=== PATIENT | female | born 1970 | race Caucasian/White ===

== ENCOUNTER 2024-07-19 07:52 | Outpatient (CLI) | payer BC, SELFPAY | END 2024-07-19 07:53 | disposition home or self-care (01) | LOC: WOUND 07:55 | PROVIDERS: PCP Physician Assistant; Visit Provider Nurse Practitioner Family | DX: L02.214 Cutaneous abscess of groin (principal); I10 Essential (primary) hypertension; E11.8 Type 2 diabetes mellitus with unspecified complications; Z79.4 Long term (current) use of insulin; Z79.85 Long-term (current) use of injectable non-insulin antidiabetic drugs | CPT/HCPCS: 11043; 11046; 97606; G0463 ==

== ENCOUNTER 2024-07-23 09:46 | Outpatient (CLI) | payer BC, SELFPAY | END 2024-07-23 09:47 | disposition home or self-care (01) | LOC: WOUND 09:47 | PROVIDERS: PCP Physician Assistant; Visit Provider Nurse Practitioner Family | DX: L02.416 Cutaneous abscess of left lower limb (principal); I10 Essential (primary) hypertension; E11.8 Type 2 diabetes mellitus with unspecified complications; Z79.4 Long term (current) use of insulin; Z79.85 Long-term (current) use of injectable non-insulin antidiabetic drugs | CPT/HCPCS: 97606 ==

== ENCOUNTER 2024-07-25 12:34 | Outpatient (CLI) | payer BC, SELFPAY | END 2024-07-25 12:35 | disposition home or self-care (01) | LOC: WOUND 12:34 | PROVIDERS: PCP Physician Assistant; Visit Provider Nurse Practitioner Family | DX: L02.416 Cutaneous abscess of left lower limb (principal); E11.8 Type 2 diabetes mellitus with unspecified complications; I10 Essential (primary) hypertension; Z79.4 Long term (current) use of insulin; Z79.85 Long-term (current) use of injectable non-insulin antidiabetic drugs | CPT/HCPCS: 97606 ==

== ENCOUNTER 2024-07-27 08:47 | Outpatient (CLI) | payer BC, SELFPAY | END 2024-07-27 08:48 | disposition home or self-care (01) | LOC: WOUND 08:47 | PROVIDERS: PCP Physician Assistant; Visit Provider Nurse Practitioner Family | DX: M72.6 Necrotizing fasciitis (principal); L02.416 Cutaneous abscess of left lower limb; I10 Essential (primary) hypertension; E11.8 Type 2 diabetes mellitus with unspecified complications; Z79.84 Long term (current) use of oral hypoglycemic drugs; Z79.85 Long-term (current) use of injectable non-insulin antidiabetic drugs | CPT/HCPCS: 11042; 11045; 97606 ==

== ENCOUNTER 2024-07-30 09:09 | Outpatient (CLI) | payer BC, SELFPAY | END 2024-07-30 09:10 | disposition home or self-care (01) | LOC: WOUND 09:09 | PROVIDERS: PCP Physician Assistant; Visit Provider Nurse Practitioner Family | DX: L02.416 Cutaneous abscess of left lower limb (principal); I10 Essential (primary) hypertension; Z79.4 Long term (current) use of insulin | CPT/HCPCS: 97606 ==

== ENCOUNTER 2024-08-02 14:50 | Outpatient (CLI) | payer BC, SELFPAY | END 2024-08-02 14:51 | disposition home or self-care (01) | LOC: WOUND 14:50 | PROVIDERS: PCP Physician Assistant; Visit Provider Nurse Practitioner Family | DX: M72.6 Necrotizing fasciitis (principal); L02.416 Cutaneous abscess of left lower limb; E11.8 Type 2 diabetes mellitus with unspecified complications; I10 Essential (primary) hypertension; Z79.4 Long term (current) use of insulin; Z79.84 Long term (current) use of oral hypoglycemic drugs | CPT/HCPCS: 11042; 11045; 97606; G0463 ==

== ENCOUNTER 2024-08-06 12:47 | Outpatient (CLI) | payer BC, SELFPAY | END 2024-08-06 12:48 | disposition home or self-care (01) | LOC: WOUND 12:47 | PROVIDERS: PCP Physician Assistant; Visit Provider Nurse Practitioner Family | DX: M72.6 Necrotizing fasciitis (principal); L02.416 Cutaneous abscess of left lower limb; E11.8 Type 2 diabetes mellitus with unspecified complications; I10 Essential (primary) hypertension; Z79.4 Long term (current) use of insulin | CPT/HCPCS: 82962; 97606; G0277 ==

== ENCOUNTER 2024-08-09 07:50 | Outpatient (CLI) | payer BC, SELFPAY | END 2024-08-09 07:51 | disposition home or self-care (01) | PROVIDERS: PCP Physician Assistant; Visit Provider Nurse Practitioner Family | DX: M72.6 Necrotizing fasciitis (principal); L02.416 Cutaneous abscess of left lower limb; E11.8 Type 2 diabetes mellitus with unspecified complications; Z79.4 Long term (current) use of insulin | CPT/HCPCS: 11042; 11045; 82962; 97606; G0277 ==

== ENCOUNTER 2024-08-13 08:52 | Outpatient (CLI) | payer BC, SELFPAY | END 2024-08-13 08:53 | disposition home or self-care (01) | PROVIDERS: PCP Physician Assistant; Visit Provider Nurse Practitioner Family | DX: M72.6 Necrotizing fasciitis (principal); L02.416 Cutaneous abscess of left lower limb; I10 Essential (primary) hypertension; E11.8 Type 2 diabetes mellitus with unspecified complications; Z79.4 Long term (current) use of insulin | CPT/HCPCS: 82962; 97606; G0277 ==

== ENCOUNTER 2024-08-15 08:51 | Outpatient (CLI) | payer BC, SELFPAY | END 2024-08-15 08:52 | disposition home or self-care (01) | LOC: WOUND 08:52 | PROVIDERS: PCP Physician Assistant; Visit Provider Nurse Practitioner Family | DX: M72.6 Necrotizing fasciitis (principal); L02.416 Cutaneous abscess of left lower limb; E11.8 Type 2 diabetes mellitus with unspecified complications | CPT/HCPCS: 82962; 97606; G0277 ==

== ENCOUNTER 2024-08-17 08:49 | Outpatient (CLI) | payer BC, SELFPAY | END 2024-08-17 08:50 | disposition home or self-care (01) | LOC: WOUND 08:49 | PROVIDERS: PCP Physician Assistant; Visit Provider Nurse Practitioner Family | DX: M72.6 Necrotizing fasciitis (principal); L02.416 Cutaneous abscess of left lower limb; E11.8 Type 2 diabetes mellitus with unspecified complications; Z79.85 Long-term (current) use of injectable non-insulin antidiabetic drugs | CPT/HCPCS: 11042; 11045; 82962; 97606; G0277 ==

== ENCOUNTER 2024-08-20 08:50 | Outpatient (CLI) | payer BC, SELFPAY | END 2024-08-20 08:51 | disposition home or self-care (01) | LOC: WOUND 08:50 | PROVIDERS: PCP Physician Assistant; Visit Provider Nurse Practitioner Family | DX: M72.6 Necrotizing fasciitis (principal); L02.416 Cutaneous abscess of left lower limb; E11.8 Type 2 diabetes mellitus with unspecified complications; Z79.85 Long-term (current) use of injectable non-insulin antidiabetic drugs | CPT/HCPCS: 82962; 97606; G0277 ==

== ENCOUNTER 2024-08-22 08:50 | Outpatient (CLI) | payer BC, SELFPAY | END 2024-08-22 08:51 | disposition home or self-care (01) | LOC: WOUND 08:51 | PROVIDERS: PCP Physician Assistant; Visit Provider Nurse Practitioner Family | DX: M72.6 Necrotizing fasciitis (principal); L02.416 Cutaneous abscess of left lower limb; I10 Essential (primary) hypertension; E11.8 Type 2 diabetes mellitus with unspecified complications; Z79.85 Long-term (current) use of injectable non-insulin antidiabetic drugs | CPT/HCPCS: 82962; 97606; G0277 ==

== ENCOUNTER 2024-08-23 09:00 | Outpatient (RCR) | payer BC, SELFPAY | END 2024-09-07 23:59 | disposition home or self-care (01) | LOC: WOUND 09:00 | PROVIDERS: PCP Physician Assistant; Visit Provider Nurse Practitioner Family | DX: M72.6 Necrotizing fasciitis (principal); L02.416 Cutaneous abscess of left lower limb; E11.8 Type 2 diabetes mellitus with unspecified complications; Z79.85 Long-term (current) use of injectable non-insulin antidiabetic drugs | CPT/HCPCS: 82962; G0277 ==

== ENCOUNTER 2024-08-24 08:48 | Outpatient (CLI) | payer BC, SELFPAY | END 2024-08-24 08:49 | disposition home or self-care (01) | LOC: WOUND 08:48 | PROVIDERS: PCP Physician Assistant; Visit Provider Nurse Practitioner Family | DX: M72.6 Necrotizing fasciitis (principal); L02.416 Cutaneous abscess of left lower limb; E11.8 Type 2 diabetes mellitus with unspecified complications; Z79.85 Long-term (current) use of injectable non-insulin antidiabetic drugs | CPT/HCPCS: 11042; 11045; 82962; 97606; G0277 ==

== ENCOUNTER 2024-08-27 08:00 | Outpatient (CLI) | payer BC, SELFPAY | END 2024-08-27 08:01 | disposition home or self-care (01) | LOC: WOUND 08-30 15:23 | PROVIDERS: PCP Physician Assistant; Visit Provider Nurse Practitioner Family | DX: M72.6 Necrotizing fasciitis (principal); L02.416 Cutaneous abscess of left lower limb; E11.8 Type 2 diabetes mellitus with unspecified complications; Z79.85 Long-term (current) use of injectable non-insulin antidiabetic drugs | CPT/HCPCS: 97606 ==

== ENCOUNTER 2024-08-29 07:55 | Outpatient (CLI) | payer BC, SELFPAY | END 2024-08-29 07:56 | disposition home or self-care (01) | PROVIDERS: PCP Physician Assistant; Visit Provider Nurse Practitioner Family | DX: M72.6 Necrotizing fasciitis (principal); L02.416 Cutaneous abscess of left lower limb; E11.8 Type 2 diabetes mellitus with unspecified complications; Z79.85 Long-term (current) use of injectable non-insulin antidiabetic drugs | CPT/HCPCS: 97606 ==

== ENCOUNTER 2024-08-31 12:54 | Outpatient (CLI) | payer BC, SELFPAY | END 2024-08-31 12:55 | disposition home or self-care (01) | LOC: WOUND 12:55 | PROVIDERS: PCP Physician Assistant; Visit Provider Nurse Practitioner Family | DX: M72.6 Necrotizing fasciitis (principal); L02.416 Cutaneous abscess of left lower limb; E11.8 Type 2 diabetes mellitus with unspecified complications; Z79.85 Long-term (current) use of injectable non-insulin antidiabetic drugs | CPT/HCPCS: 11042; 11045 ==

== ENCOUNTER 2024-09-07 12:55 | Outpatient (CLI) | payer BC, SELFPAY | END 2024-09-07 12:56 | disposition home or self-care (01) | LOC: WOUND 12:55 | PROVIDERS: PCP Physician Assistant; Visit Provider Physician Assistant | DX: M72.6 Necrotizing fasciitis (principal); L02.416 Cutaneous abscess of left lower limb; E11.8 Type 2 diabetes mellitus with unspecified complications; Z79.85 Long-term (current) use of injectable non-insulin antidiabetic drugs | CPT/HCPCS: 97597; 97598 ==

== ENCOUNTER 2024-09-14 12:52 | Outpatient (CLI) | payer BC, SELFPAY | END 2024-09-14 12:53 | disposition home or self-care (01) | LOC: WOUND 12:52 | PROVIDERS: PCP Physician Assistant; Visit Provider Physician Assistant | DX: L02.416 Cutaneous abscess of left lower limb (principal); E11.8 Type 2 diabetes mellitus with unspecified complications; Z79.85 Long-term (current) use of injectable non-insulin antidiabetic drugs | CPT/HCPCS: 97597 ==

== ENCOUNTER 2024-09-21 12:52 | Outpatient (CLI) | payer BC, SELFPAY | END 2024-09-21 12:53 | disposition home or self-care (01) | LOC: WOUND 12:52 | PROVIDERS: PCP Physician Assistant; Visit Provider Nurse Practitioner Family | DX: M72.6 Necrotizing fasciitis (principal); L02.416 Cutaneous abscess of left lower limb; E11.8 Type 2 diabetes mellitus with unspecified complications; Z79.85 Long-term (current) use of injectable non-insulin antidiabetic drugs | CPT/HCPCS: 11042 ==

== ENCOUNTER 2024-09-28 12:55 | Outpatient (CLI) | payer BC, SELFPAY | END 2024-09-28 12:56 | disposition home or self-care (01) | PROVIDERS: PCP Physician Assistant; Visit Provider Nurse Practitioner Family | DX: M72.6 Necrotizing fasciitis (principal); L02.416 Cutaneous abscess of left lower limb; E11.8 Type 2 diabetes mellitus with unspecified complications; Z79.85 Long-term (current) use of injectable non-insulin antidiabetic drugs | CPT/HCPCS: 11042 ==

== ENCOUNTER 2024-10-05 12:58 | Outpatient (CLI) | payer BC, SELFPAY | END 2024-10-05 12:59 | disposition home or self-care (01) | LOC: WOUND 12:58 | PROVIDERS: PCP Physician Assistant; Visit Provider Physician Assistant | DX: M72.6 Necrotizing fasciitis (principal); E11.8 Type 2 diabetes mellitus with unspecified complications; L02.416 Cutaneous abscess of left lower limb; Z79.85 Long-term (current) use of injectable non-insulin antidiabetic drugs | CPT/HCPCS: 97597 ==

== ENCOUNTER 2024-10-12 12:56 | Outpatient (CLI) | payer BC, SELFPAY | END 2024-10-12 12:57 | disposition home or self-care (01) | PROVIDERS: PCP Physician Assistant; Visit Provider Nurse Practitioner Family | DX: M72.6 Necrotizing fasciitis (principal); L02.416 Cutaneous abscess of left lower limb; E11.8 Type 2 diabetes mellitus with unspecified complications; Z79.85 Long-term (current) use of injectable non-insulin antidiabetic drugs | CPT/HCPCS: 11042 ==

== ENCOUNTER 2024-10-19 12:57 | Outpatient (CLI) | payer BC, SELFPAY | END 2024-10-19 12:58 | disposition home or self-care (01) | LOC: WOUND 12:57 | PROVIDERS: PCP Physician Assistant; Visit Provider Nurse Practitioner Family | DX: M72.6 Necrotizing fasciitis (principal); L02.416 Cutaneous abscess of left lower limb; E11.8 Type 2 diabetes mellitus with unspecified complications; I10 Essential (primary) hypertension | CPT/HCPCS: 11042 ==

== ENCOUNTER 2024-10-26 12:57 | Outpatient (CLI) | payer BC, SELFPAY | END 2024-10-26 12:58 | disposition home or self-care (01) | LOC: WOUND 12:57 | PROVIDERS: PCP Physician Assistant; Visit Provider Nurse Practitioner Family | DX: M72.6 Necrotizing fasciitis (principal); L02.416 Cutaneous abscess of left lower limb; E11.8 Type 2 diabetes mellitus with unspecified complications; Z79.84 Long term (current) use of oral hypoglycemic drugs; Z79.85 Long-term (current) use of injectable non-insulin antidiabetic drugs | CPT/HCPCS: 11042 ==

== ENCOUNTER 2024-11-02 12:56 | Outpatient (CLI) | payer BC, SELFPAY | END 2024-11-02 12:57 | disposition home or self-care (01) | LOC: WOUND 12:56 | PROVIDERS: PCP Physician Assistant; Visit Provider Family Medicine | DX: M72.6 Necrotizing fasciitis (principal); L02.416 Cutaneous abscess of left lower limb; E11.8 Type 2 diabetes mellitus with unspecified complications; Z79.84 Long term (current) use of oral hypoglycemic drugs; Z79.85 Long-term (current) use of injectable non-insulin antidiabetic drugs | CPT/HCPCS: 97597 ==

== ENCOUNTER 2024-11-09 12:57 | Outpatient (CLI) | payer BC, SELFPAY | END 2024-11-09 12:58 | disposition home or self-care (01) | LOC: WOUND 12:58 | PROVIDERS: PCP Physician Assistant; Visit Provider Nurse Practitioner Family | DX: Z87.2 Personal history of diseases of the skin and subcutaneous tissue (principal); E11.8 Type 2 diabetes mellitus with unspecified complications; Z09 Encounter for follow-up examination after completed treatment for conditions other than malignant neoplasm; Z79.84 Long term (current) use of oral hypoglycemic drugs; Z79.85 Long-term (current) use of injectable non-insulin antidiabetic drugs; I10 Essential (primary) hypertension | CPT/HCPCS: G0463 ==